=== PATIENT | female | born 1990 | race Caucasian/White ===

== ENCOUNTER 2016-12-12 05:16 | Observation (INO) | payer MEDICAID ==
[2016-12-12 05:38] LABS: BASO % 0.2 % (0-6); EOS % 2.3 % (0-6); HEMATOCRIT 37.3 % (35.0-47.0); HEMOGLOBIN 12.5 gm/dl (11.6-16.0); LYMPH % 16.7 % (16-45); MEAN CELL VOLUME 90.5 fl (81-97); MEAN CORPUSCULAR HEMOGLOBIN 30.3 pg (27-33); MEAN CORPUSCULAR HGB CONC 33.5 g/dl (32-36); MEAN PLATELET VOLUME 11.4 fl (7.4-10.4); MONO % 8.8 % (0-9); PLATELET COUNT 292 K/uL (130-400); RED BLOOD COUNT 4.12 M/uL (3.80-5.40); RED CELL DISTRIBUTION WIDTH 13.2 % (11.5-14.5)
[2016-12-12] MEDS ORDERED: 0.9 % SODIUM CHLORIDE 1,000 ML BAG IV ONE (05:41)
[2016-12-12 05:48] LABS: ALB/GLOB RATIO 1.5 (1.1-1.8); ALBUMIN 4.1 gm/dL (3.5-5.0); ALKALINE PHOSPHATASE 40 U/L (38-126); ALT/SGPT 37 U/L (9-52); ANION GAP 7.4 (7-16); AST/SGOT 19 U/L (14-36); BILIRUBIN,TOTAL 0.42 mg/dL (0.2-1.3); BLOOD UREA NITROGEN 12 mg/dL (7-17); CARBON DIOXIDE 27.6 mmol/L (22-30); CREATININE 0.7 mg/dL (0.52-1.04); EST GLOMERULAR FILTRATION RATE > 60 ml/min; GLUCOSE,RANDOM 114 mg/dL (70-110); TOTAL PROTEIN 6.8 gm/dL (6.3-8.2)
--- NOTE | 2016-12-12 06:04 | Emergency Department Record ---
History of Present Illness - General Chief Complaint: Abdominal Pain Stated Complaint: ABD PAIN Time Seen by Provider: 12/12/16 05:32 Source: Patient, EMS Mode of Arrival: EMS Limitations: No limitations - History of Present Illness Initial Comments: pt brought in for abd pain in the epigastric region for 3 days. pt was seen in [facility] in [place] yesterday. MD Complaint: Abdominal pain Onset/Timin -: Days(s) Location: Epigastric, RUQ Radiation: None Migration to: No migration Severity: Moderate Consistency: Getting worse Improves With: Nothing Worsens With: Nothing Associated Symptoms: Nausea, Vomiting - Related Data LMP (females 10-50): Current Allergies Allergy/AdvReac Type Severity Reaction Status Date / Time Quinolones Allergy "kidneys Verified 12/12/16 05:24 started shutting down" Travel Screening - Travel/Exposure Within Last 30 Days Have you traveled within the last 30 days?: No - Travel/Exposure Within Last Year Have you traveled outside the [place] in the last year?: No - Additonal Travel Details Have you been exposed to anyone with a communicable illness?: No - Travel Symptoms Symptom Screening: None Review of Systems Reviewed: No additional complaints except as noted below Constitutional: Reports: As per HPI. Denies: Chills, Fever, Malaise, Night sweats, Weakness, Weight change Eyes: Reports: As per HPI. Denies: Eye discharge, Eye pain, Photophobia, Vision change ENT: Reports: As per HPI. Denies: Congestion, Dental pain, Ear pain, Epistaxis , Hearing loss, Throat pain Respiratory: Reports: As per HPI. Denies: Cough, Dyspnea, Hemoptysis, Stridor, Wheezes Cardiovascular: Reports: As per HPI. Denies: Arrhythmia, Chest pain, Dyspnea on exertion, Edema, Murmurs, Orthopnea, Palpitations, Paroxysmal nocturnal dyspnea, Rheumatic Fever, Syncope Endocrine: Reports: As per HPI. Denies: Fatigue, Heat or cold intolerance, Polydipsia, Polyuria Gastrointestinal: Reports: As per HPI. Denies: Abdominal pain, Constipation, Diarrhea, Hematemesis, Hematochezia, Melena, Nausea, Vomiting Genitourinary: Reports: As per HPI. Denies: Abnormal menses, Discharge, Dyspareunia, Dysuria, Frequency, Hematuria, Incontinence, Retention, Urgency Musculoskeletal: Reports: As per HPI. Denies: Arthralgia, Back pain, Gout, Joint swelling, Myalgia, Neck pain Skin: Reports: As per HPI. Denies: Bruising, Change in color, Change in hair/ nails, Lesions, Pruritus, Rash Neurological: Reports: As per HPI. Denies: Abnormal gait, Confusion, Headache, Numbness, Paresthesias, Seizure, Tingling, Tremors, Vertigo, Weakness Psychiatric: Reports: As per HPI. Denies: Anxiety, Auditory hallucinations, Depression, Homicidal thoughts, Suicidal thoughts, Visual hallucinations Hematological/Lymphatic: Reports: As per HPI. Denies: Anemia, Blood Clots, Easy bleeding, Easy bruising, Swollen glands Past Medical History - SOCIAL HISTORY Smoking Status: Current every day smoker Alcohol Use: None Drug Use: None - RESPIRATORY Hx Respiratory Disorders: No - CARDIOVASCULAR Hx Cardio Disorders: No - NEURO Hx Neuro Disorders: Yes Hx Seizures: Yes (epilepsy-last seizure "long time ago") - GI Hx GI Disorders: No - Hx Genitourinary Disorders: No - ENDOCRINE Hx Endocrine Disorders: No - MUSCULOSKELETAL Hx Musculoskeletal Disorders: No - PSYCH Hx Psych Problems: No - HEMATOLOGY/ONCOLOGY Hx Hematology/Oncology Disorders: No Family Medical History Any Significant Family History?: No Physical Exam - General General Appearance: Alert, Oriented x3, Cooperative, Mild distress - Head Head exam: Normal inspection - Eye Eye exam: Normal appearance, PERRL, EOMI Pupils: Normal accommodation - ENT ENT exam: Normal exam, Mucous membranes moist, Normal external ear exam, Normal orophraynx Ear exam: Normal external inspection. negative: External canal tenderness Nasal Exam: Normal inspection. negative: Discharge, Sinus tenderness Mouth exam: Normal external inspection, Tongue normal Teeth exam: Normal inspection. negative: Dental caries Throat exam: Normal inspection. negative: Tonsillar erythema, Tonsillar exudate - Neck Neck exam: Normal inspection, Full ROM. negative: Tenderness - Respiratory Respiratory exam: Normal lung sounds bilaterally. negative: Respiratory distress - Cardiovascular Cardiovascular Exam: Regular rate, Normal rhythm, Normal heart sounds - GI/Abdominal GI/Abdominal exam: Soft, Normal bowel sounds, Tenderness - Rectal Rectal exam: Deferred - exam: Deferred - Extremities Extremities exam: Normal inspection, Full ROM, Normal capillary refill. negative: Tenderness - Back Back exam: Reports: Normal inspection, Full ROM. Denies: Muscle spasm, Rash noted, Tenderness - Neurological Neurological exam: Alert, CN II-XII intact, Normal gait, Oriented X3 - Psychiatric Psychiatric exam: Normal affect, Normal mood - Skin Skin exam: Dry, Intact, Normal color, Warm Course Vital Signs 12/12/16 05:16 Temperature 97.7 F Pulse Rate 60 Respiratory 16 Rate Blood Pressure 113/84 Pulse Ox 99 - Reevaluation(s) Reevaluation #1: 12/12/16 06:43 care being assumed by dr kan Medical Decision Making - Lab Data Result diagrams: 12/12/16 05:23 12/12/16 05:23 Lab Results 12/12/16 12/12/16 12/12/16 Range/Units 05:23 05:23 05:51 WBC 6.0 (4.2-12.2) K/uL RBC 4.12 (3.80-5.40) M/uL Hgb 12.5 (11.6-16.0) gm/dl Hct 37.3 (35.0-47.0) % MCV 90.5 (81-97) fl MCH 30.3 (27-33) pg MCHC 33.5 (32-36) g/dl RDW 13.2 (11.5-14.5) % Plt Count 292 (130-400) K/uL MPV 11.4 H (7.4-10.4) fl Gran % 72.0 (47-80) % Lymphocytes % 16.7 (16-45) % Monocytes % 8.8 (0-9) % Eosinophils % 2.3 (0-6) % Basophils % 0.2 (0-6) % Sodium 139 (136-145) mmol/L Potassium 3.7 (3.5-5.1) mmol/L Chloride 104 (98-107) mmol/L Carbon Dioxide 27.6 (22-30) mmol/L Anion Gap 7.4 (7-16) BUN 12 (7-17) mg/dL Creatinine 0.7 (0.52-1.04) mg/dL Estimated GFR > 60 ml/min Random Glucose 114 H (70-110) mg/dL Calcium 8.6 (8.5-10.1) mg/dL Total Bilirubin 0.42 (0.2-1.3) mg/dL AST 19 (14-36) U/L ALT 37 (9-52) U/L Alkaline Phosphatase 40 (38-126) U/L Total Protein 6.8 (6.3-8.2) gm/dL Albumin 4.1 (3.5-5.0) gm/dL Globulin 2.7 (1.4-4.8) gm/dL Albumin/Globulin Ratio 1.5 (1.1-1.8) Lipase 77 (23-300) U/L Disposition Forms: Patient Portal Access Quality - Quality Measures Quality Measures: N/A - Blood Pressure Screening Does Patient Have Any of the Following: No Blood Pressure Classification: Pre-Hypertensive BP Reading Systolic Measurement: 113 Diastolic Measurement: 84 Screening for High Blood Pressure: < Pre-Hypertensive BP, F/U Documented > [ G8950] Pre-Hypertensive Follow-up Interventions: Follow-up with rescreen every year.
[2016-12-12 06:24] LABS: URINE APPEARANCE CLEAR; URINE BILIRUBIN NEGATIVE (NEGATIVE); URINE BLOOD MODERATE (NEGATIVE); URINE COLOR YELLOW; URINE GLUCOSE (UA) NEGATIVE (NEGATIVE); URINE KETONE 15 mg/dL (NEGATIVE); URINE LEUKOCYTE ESTERASE NEGATIVE (NEGATIVE); URINE NITRITE NEGATIVE (NEGATIVE); URINE PROTEIN NEGATIVE (NEGATIVE); URINE UROBILINOGEN 0.2 E.U./dL (0.20 - 1.00)
[2016-12-12 06:29] LABS: AMPHETAMINE SCREEN URINE NOT DETECTED; BARBITURATE SCREEN URINE NOT DETECTED; BENZODIAZEPINE SCREEN URINE NOT DETECTED; COCAINE SCREEN URINE NOT DETECTED; METHADONE SCREEN URINE NOT DETECTED; METHAMPHETAMINE SCREEN DETECTED; OPIATE SCREEN URINE NOT DETECTED; OXYCODONE SCREEN URINE NOT DETECTED; PHENCYCLIDINE SCREEN URINE NOT DETECTED; PROPOXYPHENE SCREEN URINE NOT DETECTED; THC SCREEN URINE NOT DETECTED; TRICYCLIC ANTIDEPRESSANT SCRN NOT DETECTED
[2016-12-12 06:31] LABS: HCG,QUALITATIVE URINE NEGATIVE (NEGATIVE); URINE MUCUS MODERATE; URINE WBC NONE SEEN (0-2/hpf)
[2016-12-12] MEDS ORDERED: KETOROLAC 30 MG/ML VIAL IVP ONE (07:19)
--- NOTE | 2016-12-12 08:28 | Emergency Department Record ---
History of Present Illness - General Chief Complaint: Abdominal Pain Stated Complaint: ABD PAIN Time Seen by Provider: 12/12/16 05:32 Source: Patient, EMS Mode of Arrival: EMS Limitations: No limitations - History of Present Illness MD Complaint: Abdominal pain Onset/Timin -: Days(s) Location: Epigastric, RUQ Radiation: None Migration to: No migration Severity: Moderate Consistency: Getting worse Improves With: Nothing Worsens With: Nothing Associated Symptoms: Nausea, Vomiting - Related Data LMP (females 10-50): Current Patient : No Allergies Allergy/AdvReac Type Severity Reaction Status Date / Time Quinolones Allergy "kidneys Verified 12/12/16 05:24 started shutting down" Travel Screening - Travel/Exposure Within Last 30 Days Have you traveled within the last 30 days?: No - Travel/Exposure Within Last Year Have you traveled outside the [place] in the last year?: No - Additonal Travel Details Have you been exposed to anyone with a communicable illness?: No - Travel Symptoms Symptom Screening: None Review of Systems Constitutional: Reports: As per HPI. Denies: Chills, Fever, Malaise, Night sweats, Weakness, Weight change Eyes: Reports: As per HPI. Denies: Eye discharge, Eye pain, Photophobia, Vision change ENT: Reports: As per HPI. Denies: Congestion, Dental pain, Ear pain, Epistaxis , Hearing loss, Throat pain Respiratory: Reports: As per HPI. Denies: Cough, Dyspnea, Hemoptysis, Stridor, Wheezes Cardiovascular: Reports: As per HPI. Denies: Arrhythmia, Chest pain, Dyspnea on exertion, Edema, Murmurs, Orthopnea, Palpitations, Paroxysmal nocturnal dyspnea, Rheumatic Fever, Syncope Endocrine: Reports: As per HPI. Denies: Fatigue, Heat or cold intolerance, Polydipsia, Polyuria Gastrointestinal: Reports: As per HPI. Denies: Abdominal pain, Constipation, Diarrhea, Hematemesis, Hematochezia, Melena, Nausea, Vomiting Genitourinary: Reports: As per HPI. Denies: Abnormal menses, Discharge, Dyspareunia, Dysuria, Frequency, Hematuria, Incontinence, Retention, Urgency Musculoskeletal: Reports: As per HPI. Denies: Arthralgia, Back pain, Gout, Joint swelling, Myalgia, Neck pain Skin: Reports: As per HPI. Denies: Bruising, Change in color, Change in hair/ nails, Lesions, Pruritus, Rash Neurological: Reports: As per HPI. Denies: Abnormal gait, Confusion, Headache, Numbness, Paresthesias, Seizure, Tingling, Tremors, Vertigo, Weakness Psychiatric: Reports: As per HPI. Denies: Anxiety, Auditory hallucinations, Depression, Homicidal thoughts, Suicidal thoughts, Visual hallucinations Hematological/Lymphatic: Reports: As per HPI. Denies: Anemia, Blood Clots, Easy bleeding, Easy bruising, Swollen glands Past Medical History - SOCIAL HISTORY Smoking Status: Current every day smoker Alcohol Use: None Drug Use: None - RESPIRATORY Hx Respiratory Disorders: No - CARDIOVASCULAR Hx Cardio Disorders: No - NEURO Hx Neuro Disorders: Yes Hx Seizures: Yes (epilepsy-last seizure "long time ago") - GI Hx GI Disorders: No - Hx Genitourinary Disorders: No - ENDOCRINE Hx Endocrine Disorders: No - MUSCULOSKELETAL Hx Musculoskeletal Disorders: No - PSYCH Hx Psych Problems: No - HEMATOLOGY/ONCOLOGY Hx Hematology/Oncology Disorders: No Family Medical History Any Significant Family History?: No Physical Exam - General Limitations: No limitations Course Vital Signs 12/12/16 12/12/16 12/12/16 05:16 06:21 07:19 Temperature 97.7 F Pulse Rate 60 Pulse Rate [ 52 L 60 Caramel Maker ] Respiratory 16 20 20 Rate Blood Pressure 113/84 Blood Pressure 153/101 139/98 [Left Arm] Pulse Ox 99 100 100 - Reevaluation(s) Reevaluation #1: The patient is doing well at this time. She is resting comfortably with no new complaints. I did inform her that her lab tests are all WNL's. We are waiting on her US presently. I also did review her visit at [facility] yesterday and she did have a normal CT and no diagnosis was given regarding the cause of the pain. 12/12/16 08:26 Reevaluation #2: The patient now has become very histrionic and crying uncontrollably at times. She now says the pain in the upper abdomen has returned and is very severe. She is requesting more pain medicines. Presently she is curled up in the position and is reluctant to let me examine her abdomen. When I finally did get her to lay back she did have mild to moderate epigastric tenderness. 12/12/16 08:44 Reevaluation #3: The patient is doing better at this time. I did discuss the issues with the patient and the need for a short stay admission and she does agree to that. I also did discuss the case with Mariella COLUNGA) and she also accepts the patient for Dr. Cheney. 12/12/16 09:40 Medical Decision Making - Data Complexity MDM Data: Labs Ordered and/or Reviewed, X-Ray Ordered and/or Reviewed - Lab Data Result diagrams: 12/12/16 05:23 12/12/16 05:23 Lab Results 12/12/16 12/12/16 12/12/16 Range/Units 05:23 05:23 05:51 WBC 6.0 (4.2-12.2) K/uL RBC 4.12 (3.80-5.40) M/uL Hgb 12.5 (11.6-16.0) gm/dl Hct 37.3 (35.0-47.0) % MCV 90.5 (81-97) fl MCH 30.3 (27-33) pg MCHC 33.5 (32-36) g/dl RDW 13.2 (11.5-14.5) % Plt Count 292 (130-400) K/uL MPV 11.4 H (7.4-10.4) fl Gran % 72.0 (47-80) % Lymphocytes % 16.7 (16-45) % Monocytes % 8.8 (0-9) % Eosinophils % 2.3 (0-6) % Basophils % 0.2 (0-6) % Sodium 139 (136-145) mmol/L Potassium 3.7 (3.5-5.1) mmol/L Chloride 104 (98-107) mmol/L Carbon Dioxide 27.6 (22-30) mmol/L Anion Gap 7.4 (7-16) BUN 12 (7-17) mg/dL Creatinine 0.7 (0.52-1.04) mg/dL Estimated GFR > 60 ml/min Random Glucose 114 H (70-110) mg/dL Lactic Acid (0.7-2.1) mmol/L Calcium 8.6 (8.5-10.1) mg/dL Total Bilirubin 0.42 (0.2-1.3) mg/dL AST 19 (14-36) U/L ALT 37 (9-52) U/L Alkaline Phosphatase 40 (38-126) U/L Total Protein 6.8 (6.3-8.2) gm/dL Albumin 4.1 (3.5-5.0) gm/dL Globulin 2.7 (1.4-4.8) gm/dL Albumin/Globulin Ratio 1.5 (1.1-1.8) Lipase 77 (23-300) U/L Urine Color Urine Appearance Urine pH (5.0-8.0) Ur Specific [place] (1.002-1.030) Urine Protein (NEGATIVE) Urine Glucose (UA) (NEGATIVE) Urine Ketones (NEGATIVE) Urine Blood (NEGATIVE) Urine Nitrite (NEGATIVE) Urine Bilirubin (NEGATIVE) Urine Urobilinogen (0.20 - 1.00) E.U./dL Ur Leukocyte Esterase (NEGATIVE) Urine RBC (NONE SEEN) Urine WBC (0-2/hpf) Ur Epithelial Cells (FEW) Urine Mucus Urine HCG, Qual (NEGATIVE) Urine Opiates Screen Ur Oxycodone Screen Urine Methadone Screen Ur Propoxyphene Screen Ur Barbituates Screen Ur Tricyclics Screen Ur Phencyclidine Scrn Ur Amphetamine Screen U Methamphetamines Scrn U Benzodiazepines Scrn Urine Cocaine Screen Urine Cannabis Screen 12/12/16 12/12/16 12/12/16 Range/Units 06:15 06:15 06:50 WBC (4.2-12.2) K/uL RBC (3.80-5.40) M/uL Hgb (11.6-16.0) gm/dl Hct (35.0-47.0) % MCV (81-97) fl MCH (27-33) pg MCHC (32-36) g/dl RDW (11.5-14.5) % Plt Count (130-400) K/uL MPV (7.4-10.4) fl Gran % (47-80) % Lymphocytes % (16-45) % Monocytes % (0-9) % Eosinophils % (0-6) % Basophils % (0-6) % Sodium (136-145) mmol/L Potassium (3.5-5.1) mmol/L Chloride (98-107) mmol/L Carbon Dioxide (22-30) mmol/L Anion Gap (7-16) BUN (7-17) mg/dL Creatinine (0.52-1.04) mg/dL Estimated GFR ml/min Random Glucose (70-110) mg/dL Lactic Acid 0.9 (0.7-2.1) mmol/L Calcium (8.5-10.1) mg/dL Total Bilirubin (0.2-1.3) mg/dL AST (14-36) U/L ALT (9-52) U/L Alkaline Phosphatase (38-126) U/L Total Protein (6.3-8.2) gm/dL Albumin (3.5-5.0) gm/dL Globulin (1.4-4.8) gm/dL Albumin/Globulin Ratio (1.1-1.8) Lipase (23-300) U/L Urine Color Yellow Urine Appearance Clear Urine pH 6.5 (5.0-8.0) Ur Specific [place] 1.020 (1.002-1.030) Urine Protein Negative (NEGATIVE) Urine Glucose (UA) Negative (NEGATIVE) Urine Ketones 15 mg/dl H (NEGATIVE) Urine Blood Moderate (NEGATIVE) Urine Nitrite Negative (NEGATIVE) Urine Bilirubin Negative (NEGATIVE) Urine Urobilinogen 0.2 (0.20 - 1.00) E.U./dL Ur Leukocyte Esterase Negative (NEGATIVE) Urine RBC Too numerous to cnt (NONE SEEN) Urine WBC None seen (0-2/hpf) Ur Epithelial Cells 3 - 6 (FEW) Urine Mucus Moderate Urine HCG, Qual Negative (NEGATIVE) Urine Opiates Screen Not detected Ur Oxycodone Screen Not detected Urine Methadone Screen Not detected Ur Propoxyphene Screen Not detected Ur Barbituates Screen Not detected Ur Tricyclics Screen Not detected Ur Phencyclidine Scrn Not detected Ur Amphetamine Screen Not detected U Methamphetamines Scrn Detected U Benzodiazepines Scrn Not detected Urine Cocaine Screen Not detected Urine Cannabis Screen Not detected - Radiology Data Radiology results: Report reviewed (Abdominal US: Nonspecific edema of GB wall, O/W neg.) Disposition Disposition: Admit Clinical Impression: Abdominal pain with vomiting Disposition: Still a Patient at [facility] Decision to Admit: Admit from ER Decision to Admit Date: 12/12/16 Decision to Admit Time: 09:41 Accepting Physician: Noni Time Discussed w/Accepting Physician: 09:41 Condition: (2) Stable Instructions: Abdominal Pain (ED) Forms: Patient Portal Access Time of Disposition: 09:41 Quality - Quality Measures Quality Measures: N/A - Blood Pressure Screening View Details: Yes Does Patient Have Any of the Following: No Blood Pressure Classification: Pre-Hypertensive BP Reading Systolic Measurement: 113 Diastolic Measurement: 84 Screening for High Blood Pressure: < Pre-Hypertensive BP, F/U Documented > [ G8950] Pre-Hypertensive Follow-up Interventions: Referral to alternative/primary care provider.
[2016-12-12] MEDS ORDERED: MAGNESIUM HYDROXIDE/AL HYDROX 30 ML, LIDOCAINE VISC 2% 200 MG PO ONE ×2 (08:40)
[2016-12-12] MEDS ORDERED: ONDANSETRON HCL IV 4 MG/2 ML VIAL IVP ONE (08:40)
[2016-12-12] MEDS ORDERED: SUCRALFATE 1 G/10 ML UD PO ONE (09:06)
[2016-12-12] MEDS ORDERED: MORPHINE SULFATE 5 MG/ML PFS IVP ONE (09:16)
[2016-12-12] MEDS ORDERED: ONDANSETRON HCL IV 4 MG/2 ML VIAL IVP PRN (12:56)
[2016-12-12] MEDS ORDERED: PANTOPRAZOLE SODIUM IV 40 MG VIAL IV SCH (12:56)
--- NOTE | 2016-12-12 13:45 | ULTRASOUND REPORT ---
EXAM: EMERGENCY COMPLETE ABDOMEN ULTRASOUND HISTORY: RIGHT UPPER QUADRANT AND EPIGASTRIC PAIN FOR 3-4 DAYS. TECHNIQUE: Complete real-time ultrasound examination of the abdomen was obtained. Comparison: No prior abdomen ultrasound with which to compare. FINDINGS: The majority of the pancreas was visualized with no definite pancreatic mass or peripancreatic fluid collection evident. The abdominal aorta appears negative with no aneurysm seen. The IVC was negative as seen. The liver appears negative with no definite hepatic mass or intrahepatic biliary dilatation seen. The right kidney measures 10.5 cm in length with no hydronephrosis evident. No gallstones identified within the gallbladder and no pericholecystic fluid collection evident. The gallbladder wall diffusely is at about the upper limits of normal in thickness. The common duct was seen and was of normal caliber. The left kidney measures 10.4 cm in length with no hydronephrosis evident. The spleen appears negative with no splenic mass evident. IMPRESSION: 1. NO GALLSTONES OR BILIARY DILATATION SEEN. THE GALLBLADDER WALL THICKNESS DIFFUSELY IS SLIGHTLY PROMINENT. 2. THE REMAINDER OF THE ABDOMEN ULTRASOUND APPEARS ESSENTIALLY NEGATIVE. THE LIVER APPEARED UNREMARKABLE. NO HYDRONEPHROSIS ON EITHER SIDE. JOB NUMBER: [id number] MTDD
--- NOTE | 2016-12-12 15:33 | History & Physical ---
History of Present Illness - Date of Service Date of Service for History & Physical: 12/12/16 - History of Present Illness Admitting Diagnosis: 1. Intractable Nausea, Vomiting, with Abdominal Pain. History of Present Illness: Ms. Winter is a 26 y/o female who reports a three day history of sharp abdominal pain, nausea and vomiting. She says her symptoms began suddenly and cannot recall any precipitating events. The patient notes increasing abdominal pain, initially 4/10 in severity now approximately a 7/10. She states that eating exacerbates her pain and she has no alleviating factors. Her symptoms of nausea/vomiting have been persistent over the past few days of which she describes a bitter/sour tasting vomitous but denies blood. The patient reports similar symptoms in the past with upper EGD several years ago but is unable to recall the results or findings of the procedure and has not been on medications. Of note is the patient's daily use of cannabis. As per the ED the patient was evaluated at [facility] and CT abdomen /pelvis were unremarkable. In addition, the patient was hesitant to be examined and requested more pain medication. Labs and abdominal US on admission did not reveal any acute abdominal issues. On initial evaluation the patient appears in mild distress, but is stable and able to participate meaningfully in examination and history. Travel Screening - Travel/Exposure Within Last 30 Days Have you traveled within the last 30 days?: No - Travel/Exposure Within Last Year Have you traveled outside the [place] in the last year?: No - Additonal Travel Details Have you been exposed to anyone with a communicable illness?: No - Travel Symptoms Symptom Screening: None Review of Systems Constitutional: Denies: Chills, Fever, Weakness, Weight change Eyes: Denies: Vision change ENT: Denies: Hearing loss, Throat pain Respiratory: Denies: Cough, Dyspnea Cardiovascular: Reports: Arrhythmia. Denies: Chest pain, Dyspnea on exertion, Murmurs, Palpitations Endocrine: Denies: Fatigue, Heat or cold intolerance Gastrointestinal: Reports: Abdominal pain, Nausea, Vomiting (5-6 episodes since Saturday ). Denies: Constipation, Diarrhea, Hematemesis, Hematochezia, Melena Genitourinary: Reports: Abnormal menses. Denies: Discharge, Dyspareunia, Dysuria Musculoskeletal: Denies: Arthralgia, Back pain Skin: Reports: Lesions, Pruritus (facial rash ), Rash Neurological: Reports: Abnormal gait, Paresthesias, Seizure, Tingling, Tremors, Vertigo. Denies: Confusion, Headache, Numbness, Weakness Psychiatric: Reports: Auditory hallucinations, Depression. 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: 2 LMP comments: Reports: current - RESPIRATORY Hx Respiratory Disorders: No - CARDIOVASCULAR Hx Cardio Disorders: No - NEURO Hx Neuro Disorders: Yes Hx Seizures: Yes (epilepsy-last seizure "long time ago") - GI Hx GI Disorders: No - Hx Genitourinary Disorders: No - ENDOCRINE Hx Endocrine Disorders: No - MUSCULOSKELETAL Hx Musculoskeletal Disorders: No - PSYCH Hx Psych Problems: No - HEMATOLOGY/ONCOLOGY Hx Hematology/Oncology Disorders: No Family Medical History Any Significant Family History?: Yes Hx Cancer: Father, Mother Hx Diabetes: Brother/Sister Hx HTN: Mother H&P Meds/Allergies - Allergies Allergies: Allergies Allergy/AdvReac Type Severity Reaction Status Date / Time Quinolones Allergy "kidneys Verified 12/12/16 05:24 started shutting down" - Home Medications Home Medications Medication Instructions Recorded Confirmed Last Taken Dextroamphetamine/Amphetamine 10 mg PO DAILY 12/12/16 12/12/16 Unknown [Adderall] Levetiracetam [Keppra] 500 mg PO BID 12/12/16 12/12/16 Unknown - Active Medications Active Medications: Current Medications Sodium Chloride () 1,000 mls @ 100 mls/hr IV .Q10H PRN PRN Reason: LARGE VOLUME IV Morphine Sulfate (Morphine Sulfate) 2.5 mg IVP Q4HR PRN PRN Reason: Analgesia Stop: 12/19/16 12:57 Ondansetron HCl (Zofran) 4 mg IVP Q4H PRN PRN Reason: NAUSEA Pantoprazole Sodium (Protonix Iv) 40 mg IVP Q24H [facility]ECKY Physical Exam - General General Appearance: Alert, Oriented x3, Cooperative, Mild distress Limitations: No limitations - Head Head exam: Normal inspection - Eye Eye exam: Normal appearance, PERRL, EOMI Pupils: Normal accommodation - ENT ENT exam: Normal exam, Mucous membranes moist, Normal external ear exam, Normal orophraynx Ear exam: Normal external inspection. negative: External canal tenderness Nasal Exam: Normal inspection. negative: Discharge, Sinus tenderness Mouth exam: Normal external inspection, Tongue normal Teeth exam: negative: Dental caries Throat exam: Normal inspection. negative: Tonsillar erythema, Tonsillar exudate - Neck Neck exam: Normal inspection, Full ROM. negative: Tenderness - Respiratory Respiratory exam: Normal lung sounds bilaterally. negative: Respiratory distress - Cardiovascular Cardiovascular Exam: Regular rate, Normal rhythm, Normal heart sounds Peripheral Pulses: 2+: Radial (R), Radial (L), Dorsalis Pedis (R), Dorsalis Pedis (L) - GI/Abdominal GI/Abdominal exam: Soft, Normal bowel sounds, Tenderness (epigastrium, ) - Rectal Rectal exam: Deferred - exam: Deferred - Extremities Extremities exam: Normal inspection, Full ROM, Normal capillary refill. negative: Tenderness - Back Back exam: Reports: Muscle spasm, Rash noted, Tenderness - Neurological Neurological exam: Alert, CN II-XII intact, Normal gait, Oriented X3 - Psychiatric Psychiatric exam: Normal affect, Normal mood. negative: Agitated, Anxious - Skin Skin exam: Dry, Intact, Normal color, Rash (facial rash ), Warm Distribution of rash: Face Description of rash: Erythematous Results - Labs Result Diagrams: 12/12/16 05:23 12/12/16 05:23 VTE H&P Assessment - Risk for VTE Risk for VTE: No Risk Level: Very Low Risk Assessment Date: 12/12/16 Risk Assessment Time: 17:04 VTE Orders Placed or Will Be Placed: No VTE Reason for No Prophylaxis: Not Indicated AMI H&P Plan - AMI AMI Reason For No ASA Ordered: Not Indicated AMI Reason For No Statins Ordered: Not Indicated - EKG Initial Date: 12/12/16 Time: 17:05 EKG: No Acute Changes Plan - Detailed Diagnosis and Plan (1) Acute abdominal pain Plan: - likely due to viral or cannabis gastritis. - as per ED recent CT abdomen/pelvis negative at [facility]. Abdmonal US in ED unremarkable - cont pt on Nacl 0.9% @ 100mL/hr, Morphine IV 2.5mg, change to Q6H, Zofran 4mg - liquid diet today as tolerated, NPO at midnight. GI consulted for EGD in am. - repeat electrolytes, cbc/ w diff in the am. Current Visit: Yes Status: Acute Base Code: R10.9 - UNSPECIFIED ABDOMINAL PAIN Onset Date: ~12/09/16 (2) Emesis, persistent Plan: - likely gastritis induced by daily cannabis use. - cont w/ liquid diet as tolerated and NPO @ midnight with plans for EGD in the am as per GI. Protonix 40mg IVP QD - pt counseled to discontinue marajuana use. Current Visit: Yes Status: Acute Base Code: R11.10 - VOMITING, UNSPECIFIED (3) Tobacco abuse Plan: - pt reports smoking 1/2 pk daily for >5 years. - cessation counseling advised. Current Visit: Yes Status: Chronic Base Code: Z72.0 - TOBACCO USE (4) Tobacco abuse counseling Current Visit: Yes Status: Chronic Base Code: Z71.6 - TOBACCO ABUSE COUNSELING (5) Full code status Current Visit: Yes Status: Acute Base Code: Z78.9 - OTHER SPECIFIED HEALTH STATUS Comment: Disposition: anticipate d/c post EGD with outpatient PCP f/u within one week.
[2016-12-12] MEDS: PANTOPRAZOLE SODIUM IV 40 MG VIAL IVP SCH (17:18)
[2016-12-12] MEDS: MORPHINE SULFATE 5 MG/ML PFS IVP PRN (19:57)
[2016-12-13] MEDS: 0.9 % SODIUM CHLORIDE 1000ML 1,000 ML IV PRN ×2 (00:55→09:56)
[2016-12-13] MEDS: MORPHINE SULFATE 5 MG/ML PFS IVP PRN ×3 (02:04→11:01)
[2016-12-13 07:11] LABS: BASO % 0.6 % (0-6); EOS % 5.1 % (0-6); HEMATOCRIT 37.3 % (35.0-47.0); HEMOGLOBIN 12.4 gm/dl (11.6-16.0); LYMPH % 44.2 % (16-45); MEAN CORPUSCULAR HEMOGLOBIN 30.2 pg (27-33); MEAN CORPUSCULAR HGB CONC 33.2 g/dl (32-36); MEAN PLATELET VOLUME 11.6 fl (7.4-10.4); MONO % 12.1 % (0-9); PLATELET COUNT 273 K/uL (130-400); RED CELL DISTRIBUTION WIDTH 13.2 % (11.5-14.5); WHITE BLOOD COUNT W/O DIFF 5.1 K/uL (4.2-12.2)
[2016-12-13 07:28] LABS: ALB/GLOB RATIO 1.7 (1.1-1.8); ALBUMIN 3.8 gm/dL (3.5-5.0); ALKALINE PHOSPHATASE 40 U/L (38-126); ALT/SGPT 34 U/L (9-52); AMYLASE 60 U/L (30-110); ANION GAP 5.8 (7-16); AST/SGOT 16 U/L (14-36); BILIRUBIN,TOTAL 0.43 mg/dL (0.2-1.3); BLOOD UREA NITROGEN 6 mg/dL (7-17); CARBON DIOXIDE 27.2 mmol/L (22-30); CREATININE 0.8 mg/dL (0.52-1.04); EST GLOMERULAR FILTRATION RATE > 60 ml/min; GLUCOSE,RANDOM 93 mg/dL (70-110); LIPASE 37 U/L (23-300); TOTAL PROTEIN 6.1 gm/dL (6.3-8.2)
--- NOTE | 2016-12-13 10:26 | Physician Progress Note ---
Subjective - Date Date of Physician Progress Note: 12/13/16 - Subjective Subjective Comment: Patient complains of abdominal pain and migraine headache last night. Location: Abdomen, Head Radiation: Non-Radiating Severity scale (1-10): 5 Quality: Aching Consistency: Constant Improves with: Medication Worsens with: None Associated symptoms: Denies other symptoms Objective - Vital Signs Vital Signs: Vital Signs - Last 24 Hrs Temp Pulse Resp BP Pulse Ox 12/13/16 06:00 98.0 F 75 14 120/66 99 12/13/16 02:00 98.1 F 73 14 124/76 97 12/12/16 22:56 97.7 F 60 16 118/72 100 12/12/16 21:00 16 12/12/16 19:12 12 - General General Appearance: Alert, Oriented x3, Cooperative, Mild distress Limitations: No limitations - Head Head exam: Normal inspection - Eye Eye exam: Normal appearance, PERRL - ENT ENT exam: Mucous membranes moist Throat exam: Tonsillar exudate - Neck Neck exam: Normal inspection. negative: Tenderness - Respiratory Respiratory exam: Normal lung sounds bilaterally. negative: Respiratory distress - Cardiovascular Cardiovascular Exam: Regular rate, Normal rhythm, Normal heart sounds Peripheral Pulses: 2+: Radial (R), Radial (L), Dorsalis Pedis (R), Dorsalis Pedis (L) - GI/Abdominal GI/Abdominal exam: Soft, Normal bowel sounds, Tenderness (epigastrium) - Rectal Rectal exam: Deferred - exam: Deferred - Extremities Extremities exam: Normal inspection. negative: Tenderness - Neurological Neurological exam: Alert, Normal gait, Oriented X3 - Psychiatric Psychiatric exam: Normal affect, Normal mood. negative: Agitated, Anxious - Skin Skin exam: Dry, Intact, Normal color, Rash (facial rash ), Warm Distribution of rash: Face Description of rash: Erythematous Assessment and Plan - Assessment and Plan (1) Acute abdominal pain Plan: - likely due to viral or cannabis induced gastritis. - continue on Nacl 0.9% @ 100ml/hr, morphine 2.5mg PRN, Zofran 4mg PRN - NPO pending EGD this am. Discussed with GI and will f/u once procedure completed. Current Visit: Yes Status: Acute Base Code: R10.9 - UNSPECIFIED ABDOMINAL PAIN Onset Date: ~12/09/16 (2) Migraine Plan: - patient takes Excedrin migraine at home. No PO medications pending EGD this am. - IV morphine administered last night with moderate effect. - will order IV Toradol if recurring symptoms. Current Visit: Yes Status: Acute Qualifiers: Migraine type: without aura Intractability: not intractable Base Code: G43.909 - MIGRAINE, UNSP, NOT INTRACTABLE, WITHOUT STATUS MIGRAINOSUS (3) Emesis, persistent Plan: - pt NPO since last night for procedure. - no emesis over the past 24 hours. - Zofran 4 mg PRN to continue. Current Visit: Yes Status: Acute Base Code: R11.10 - VOMITING, UNSPECIFIED Comment: Resolved (4) Tobacco abuse Current Visit: Yes Status: Chronic Base Code: Z72.0 - TOBACCO USE (5) Full code status Current Visit: Yes Status: Acute Base Code: Z78.9 - OTHER SPECIFIED HEALTH STATUS Comment: Disposition: anticipate d/c post EGD if pt able to tolerate diet this afternoon. Results - Labs Result Diagrams: 12/13/16 06:40 12/13/16 06:40 Labs Last 24 Hours: Laboratory Results - last 24 hr 12/13/16 12/13/16 06:40 06:40 WBC 5.1 RBC 4.10 Hgb 12.4 Hct 37.3 MCV 91.0 MCH 30.2 MCHC 33.2 RDW 13.2 Plt Count 273 MPV 11.6 H Gran % 38.0 L Lymphocytes % 44.2 Monocytes % 12.1 H Eosinophils % 5.1 Basophils % 0.6 Sodium 140 Potassium 3.9 Chloride 107 Carbon Dioxide 27.2 Anion Gap 5.8 L BUN 6 L Creatinine 0.8 Estimated GFR > 60 Random Glucose 93 Calcium 8.7 Total Bilirubin 0.43 AST 16 ALT 34 Alkaline Phosphatase 40 Total Protein 6.1 L Albumin 3.8 Globulin 2.3 Albumin/Globulin Ratio 1.7 Amylase 60 Lipase 37 DVT/PE Assessment - Risk for VTE Risk for VTE: No Risk Level: Very Low Risk Assessment Date: 12/12/16 Risk Assessment Time: 17:04 VTE Orders Placed or Will Be Placed: No VTE Reason for No Prophylaxis: Not Indicated - Active Medicaitons Current Medications: Current Medications Sodium Chloride () 1,000 mls @ 100 mls/hr IV .Q10H PRN PRN Reason: LARGE VOLUME IV Last Admin: 12/13/16 09:56 Dose: 100 mls/hr Morphine Sulfate (Morphine Sulfate) 2.5 mg IVP Q4HR PRN PRN Reason: Analgesia Stop: 12/19/16 12:57 Last Admin: 12/13/16 07:16 Dose: 2.5 mg Ondansetron HCl (Zofran) 4 mg IVP Q4H PRN PRN Reason: NAUSEA Pantoprazole Sodium (Protonix Iv) 40 mg IVP Q24H [facility] Last Admin: 12/12/16 17:18 Dose: 40 mg AMI Plan - Labs Result Diagrams: 12/13/16 06:40 12/13/16 06:40
[2016-12-13] MEDS: PANTOPRAZOLE SODIUM IV 40 MG VIAL IVP SCH (12:37)
[2016-12-13] MEDS ORDERED: ACETAMINOPHEN 500 MG TABLET PO PRN (13:24)
[2016-12-13] MEDS ORDERED: LIDOCAINE 2% MDV (20MG/ML) 20ML VIAL IV ONE (14:00)
--- NOTE | 2016-12-13 15:03 | Discharge Summary ---
Providers Discharge Summary Date: 12/13/16 Date of admission: 12/12/16 11:23 Attending physician: JEANINE COPELAND Primary care physician: JEANINE COPELAND Consults: Gastroenterology - Dr. Olea Physical Exam - Vital Signs Vital Signs: Vital Signs - Last 24 Hrs Temp Pulse Resp BP BP Pulse Ox 12/13/16 11:25 98 F 120/66 12/13/16 10:00 98.2 F 80 14 117/79 98 12/13/16 06:00 98.0 F 75 14 120/66 99 12/13/16 02:00 98.1 F 73 14 124/76 97 12/12/16 22:56 97.7 F 60 16 118/72 100 12/12/16 21:00 16 12/12/16 19:12 12 - General General Appearance: Alert, Oriented x3, Cooperative, No acute distress Limitations: No limitations - Head Head exam: Atraumatic, Normal inspection - Eye Eye exam: Normal appearance - Respiratory Respiratory exam: Normal lung sounds bilaterally - Cardiovascular Cardiovascular Exam: Regular rate, Normal rhythm, Normal heart sounds Peripheral Pulses: 2+: Radial (R), Radial (L), Dorsalis Pedis (R), Dorsalis Pedis (L) - GI/Abdominal GI/Abdominal exam: Soft, Normal bowel sounds. negative: Tenderness - Extremities Extremities exam: negative: Tenderness - Back Back exam: Reports: Rash noted - Neurological Neurological exam: Alert, Normal gait, Oriented X3 - Psychiatric Psychiatric exam: Normal affect, Normal mood - Skin Skin exam: Dry, Intact, Rash (facial rash ), Warm Distribution of rash: Face Description of rash: Erythematous Hospitalization - Hospitalization Admission Diagnosis: 1. Intractable Nausea, Vomiting, with Abdominal Pain. - Problem List/Discharge Diagnosis (1) Gastric ulcer Plan: The patient's initial presentation was abdominal pain, nausea and vomiting. This was considered to probably cyclical vomiting and gastritis due to chronic cannabis use. Abdominal US in ED as well as CT abdomen/pelvis from [facility] are negative. EGD 12/13/16: shows small gastric ulceration. The patient is to be continued on PPI BID x 6 weeks with follow up evaluation as per GI for colonoscopy for complaint of hematochezia. Current Visit: Yes Status: Acute Discharge Diagnosis: Gastric ulcer chronicity: unspecified ulcer chronicity Gastric ulcer complication status: without hemorrhage or perforation Qualified Code(s): K25.9 - Gastric ulcer, unspecified as acute or chronic, without hemorrhage or perforation Base Code: K25.9 - GASTRIC ULCER, UNSP ACUTE OR CHRONIC, W/O HEMOR OR PERF Diagnosis Priority: Primary Onset Date: ~12/12/16 (2) Migraine Plan: Patient is asked to continue Acetaminophen 500mg Q6H PRN at the onset of symptoms. She is to follow up with her PCP in [place] at the earliest opportunity. Current Visit: Yes Status: Acute Discharge Diagnosis: Migraine type: without aura Intractability: not intractable Base Code: G43.909 - MIGRAINE, UNSP, NOT INTRACTABLE, WITHOUT STATUS MIGRAINOSUS Comment: Resolved (3) Tobacco abuse Plan: Cessation counseling provided for > 5 minutes. Current Visit: Yes Status: Chronic Base Code: Z72.0 - TOBACCO USE - Hospitalization Course Disposition: Home, Self-Care Hospital Course: Summary: 26 y/o female who presents with complaint of 3 day history of nausea, vomiting and sharp abdominal pain. On admission her symptoms were vague and non- specific but she subsequently reported similar episodes in the past, frequent marajuana and amphetamine use. She has had upper EGD in the past, the results of which are unknown but the patient has not been on any home medications to address her symptoms. 12/12/16 The patient was started on morphine 2.5mg IV PRN, Zofran 4mg Q4H and IV fluids. She was held NPO with anticipation for EGD on 12/13. In addition to her admitting complaints the patient began to experience a migraine headache throughout the evening and was given IV morphine with moderate relief of symptoms. 12/13/16 Upper GI Endoscopy performed this morning revealed a small non-bleeding gastric ulcer. The patient's symptoms improved post-operatively and she was able to tolerate liquid/soft diet this afternoon. Procedures: Upper GI Endoscopy Abnormal Labs: Abnormal Lab Results 12/13/16 12/13/16 Range/Units 06:40 06:40 MPV 11.6 H (7.4-10.4) fl Gran % 38.0 L (47-80) % Monocytes % 12.1 H (0-9) % Anion Gap 5.8 L (7-16) BUN 6 L (7-17) mg/dL Total Protein 6.1 L (6.3-8.2) gm/dL Condition at Discharge: (1) Good Discharge Diagnosis: Gastric ulcer Discharge Medications - Discharge Medications Home Medications: Ambulatory Orders Dextroamphetamine/Amphetamine [Adderall] 10 mg PO DAILY 12/12/16 [Last Taken Unknown] Levetiracetam [Keppra] 500 mg PO BID 12/12/16 [Last Taken Unknown] Discharge Plan - Discharge Instructions Instructions: Abdominal Pain (ED)
--- NOTE | 2016-12-13 15:40 | Discharge Summary ---
Providers Date of admission: 12/12/16 11:23 Attending physician: JEANINE COPELAND Primary care physician: JEANINE COPELAND Physical Exam - Vital Signs Vital Signs: Vital Signs - Last 24 Hrs Temp Pulse Resp BP BP Pulse Ox 12/13/16 11:25 98 F 120/66 12/13/16 10:00 98.2 F 80 14 117/79 98 12/13/16 06:00 98.0 F 75 14 120/66 99 12/13/16 02:00 98.1 F 73 14 124/76 97 12/12/16 22:56 97.7 F 60 16 118/72 100 12/12/16 21:00 16 12/12/16 19:12 12 - General General Appearance: Alert, Oriented x3, Cooperative, No acute distress Limitations: No limitations - Head Head exam: Atraumatic, Normal inspection - Eye Eye exam: Normal appearance Pupils: Normal accommodation - ENT ENT exam: Mucous membranes moist Ear exam: Normal external inspection. negative: External canal tenderness Nasal Exam: Normal inspection. negative: Discharge, Sinus tenderness Mouth exam: Normal external inspection, Tongue normal Teeth exam: negative: Dental caries Throat exam: Tonsillar exudate - Neck Neck exam: Normal inspection. negative: Tenderness - Respiratory Respiratory exam: Normal lung sounds bilaterally - Cardiovascular Cardiovascular Exam: Regular rate, Normal rhythm, Normal heart sounds Peripheral Pulses: 2+: Radial (R), Radial (L), Dorsalis Pedis (R), Dorsalis Pedis (L) - GI/Abdominal GI/Abdominal exam: Soft, Normal bowel sounds. negative: Tenderness - Rectal Rectal exam: Deferred - exam: Deferred - Extremities Extremities exam: negative: Tenderness - Back Back exam: Reports: Rash noted - Neurological Neurological exam: Alert, Normal gait, Oriented X3 - Psychiatric Psychiatric exam: Normal affect, Normal mood - Skin Skin exam: Dry, Intact, Rash (facial rash ), Warm Distribution of rash: Face Description of rash: Erythematous Hospitalization - Hospitalization Admission Diagnosis: 1. Intractable Nausea, Vomiting, with Abdominal Pain. - Problem List/Discharge Diagnosis (1) Gastric ulcer Current Visit: Yes Status: Acute Discharge Diagnosis: Gastric ulcer chronicity: unspecified ulcer chronicity Gastric ulcer complication status: without hemorrhage or perforation Qualified Code(s): K25.9 - Gastric ulcer, unspecified as acute or chronic, without hemorrhage or perforation Base Code: K25.9 - GASTRIC ULCER, UNSP ACUTE OR CHRONIC, W/O HEMOR OR PERF Onset Date: ~12/12/16 (2) Migraine Current Visit: Yes Status: Acute Discharge Diagnosis: Migraine type: without aura Intractability: not intractable Base Code: G43.909 - MIGRAINE, UNSP, NOT INTRACTABLE, WITHOUT STATUS MIGRAINOSUS Comment: Resolved (3) Tobacco abuse Current Visit: Yes Status: Chronic Base Code: Z72.0 - TOBACCO USE - Hospitalization Course Disposition: Home, Self-Care Abnormal Labs: Abnormal Lab Results 12/13/16 12/13/16 Range/Units 06:40 06:40 MPV 11.6 H (7.4-10.4) fl Gran % 38.0 L (47-80) % Monocytes % 12.1 H (0-9) % Anion Gap 5.8 L (7-16) BUN 6 L (7-17) mg/dL Total Protein 6.1 L (6.3-8.2) gm/dL Condition at Discharge: (1) Good Discharge Medications - Discharge Medications Prescriptions: Acetaminophen [Tylenol Extra Strength] 500 mg PO Q6HR PRN #20 tablet PRN Reason: Abdominal Pain Pantoprazole Sodium [Protonix] 40 mg PO BID #90 tab. Home Medications: Ambulatory Orders Acetaminophen [Tylenol Extra Strength] 500 mg PO Q6HR PRN #20 tablet 12/13/16 [ Last Taken Unknown] Pantoprazole Sodium [Protonix] 40 mg PO BID #90 tab 12/13/16 [Last Taken Unknown] Discharge Plan - Discharge Instructions Activity at Discharge: Resume Usual Activities As Tolerated Diet at Discharge: Regular Diet Instructions: Abdominal Pain (ED)
[2016-12-13] MEDS ORDERED: FENTANYL PF 100MCG/2ML VIAL IV ONE (16:37)
[2016-12-13] MEDS ORDERED: PROPOFOL 10 MG/ML VIAL IV ONE (16:37)
--- NOTE | 2016-12-14 10:00 | Medical Records Consult ---
REASON FOR CONSULTATION: Abdominal pain, nausea, vomiting. HISTORY OF PRESENT ILLNESS: The patient is a 26-year-old woman who has had recurrent bouts of abdominal pain for several years according to her. She has been seen at [facility] as well as most recently at [facility]. She has been complaining of recurrent bouts of nausea and vomiting over the past 5 days. She also admits to questionable coffee-ground emesis, bloody emesis, black stool as well as bloody stool, constipation, and diarrhea. She states that she has had previous upper endoscopy several years ago at [facility], the results of which she says were unremarkable. Her history is somewhat questionable based on her recollection, however. In any event, she denies any obvious exacerbating or remitting factors. She does have a history of seizures and uses Keppra. She had a recent abdominal ultrasound at [facility] which demonstrated possible mildly thickened gallbladder wall but the exam was otherwise unremarkable. She self-reports a recent CT scan at [facility] was unremarkable. PAST MEDICAL HISTORY: Seizure disorder. SOCIAL HISTORY: She does smoke cigarettes and uses marijuana frequently. Denies illicit drugs or alcohol. REVIEW OF SYSTEMS: Otherwise unremarkable. PAST SURGICAL HISTORY: Noncontributory. FAMILY HISTORY: Noncontributory. HOME MEDICATIONS: 1. Keppra. 2. Adderall. ALLERGIES: QUINOLONES. REVIEW OF SYSTEMS: Noted per the admission H&P as well as the History of Present Illness. PHYSICAL EXAMINATION: VITALS: 118/77, pulse 57, respirations 18. She is afebrile. GENERAL: Awake, alert, oriented x3. Nontoxic in appearance. She appears to be in mild distress. Her affect is somewhat flat. HEENT: Head is normocephalic and atraumatic. No temporal muscle wasting is noted. Extraocular muscles are intact. No scleral icterus or conjunctival injection noted. SKIN: Warm and dry. No jaundice noted. NECK: Trachea is midline. Thyroid nonpalpable. The neck was supple. HEART: Regular rate and rhythm although mildly bradycardic. LUNGS: Clear to auscultation without wheezes, rales, or rhonchi. Normal to percussion. ABDOMEN: Soft. There is moderate diffuse tenderness on palpation. There is voluntary guarding without rebound or rigidity noted. EXTREMITIES: No clubbing, cyanosis, or edema. RADIOGRAPHIC DATA: Abdominal ultrasound as previously mentioned. LABORATORY DATA: On admission, white count 6.0, hemoglobin 12.5, hematocrit 37.3, platelets 292. Sodium 139, potassium 3.7, chloride 104, CO2 27.6, BUN 12, creatinine 0.7, glucose 114. Liver chemistries are entirely normal. Lipase was 77. IMPRESSION: 1. Recurrent abdominal pain of unclear etiology. Given the patient's history, it appears she may have been taking NSAIDs and aspirin for headaches. I will need to rule out the possibility of peptic ulcer disease. 2. History of seizures. 3. History of headaches, questionable migraines. RECOMMENDATIONS: I would suggest the patient undergo an upper endoscopy. If that is unremarkable, perhaps a CT enterography would be helpful at some point. Perhaps even an outpatient colonoscopy would be necessary. As always, thank you for allowing me to participate in the healthcare of your patient. CC: Dr. Maxx RIVAS
--- NOTE | 2016-12-18 17:31 | Operative Note ---
DATE OF SURGERY: 12/13/2016 OPERATION: ESOPHAGOGASTRODUODENOSCOPY with biopsy. PREOPERATIVE DIAGNOSIS: Nausea, vomiting, abdominal pain. POSTOPERATIVE DIAGNOSES: 1. Gastric ulcer without stigmata of recent hemorrhage. 2. Rule out occult celiac disease. 3. 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 PROCEDURE: After informed consent was obtained from the patient, she was placed in the left lateral decubitus position in the endoscopy suite, sedated and monitored by the department of anesthesia. Once in the left lateral decubitus position and sedated, a well-lubricated [id number] gastroscope was placed in the posterior oropharynx and under direct visualization passed to the proximal esophagus. The endoscope was advanced through the proximal, mid, and distal esophagus. 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 No ulcers, erosions, strictures, or varices were otherwise seen. The gastric body demonstrated normal distensibility, normal rugal folds. The body and the antrum were carefully inspected revealing mild erythema in the antrum and several erosions as wel Lasix an ulceration. The ulceration in the prepyloric area was without stigmata of recent hemorrhage and had a clean base. This had a somewhat serpiginous appearance. The duodenal bulb and sweep were unremarkable other than perhaps some mild scalloping in the duodenal sweep. Random biopsies obtained to rule out occult celiac sprue. Gastric biopsies obtained to rule out H pylori. J-turn views of the proximal stomach were unremarkable. The endoscope was then straightened and retracted to the GE junction where biopsies were obtained as well. The endoscope removed from the patient with no new findings noted. RECOMMENDATIONS: I would suggest the patient use a [id number] PPI for at least 8 weeks. She should avoid aspirin and nonsteroidal products. In 6-8 weeks, we will schedule her for an upper and lower endoscopy to be performed at that time. In addition, we will attempt to obtain the results of her recent CT scan. As always, thank you for allowing me to participate in the healthcare of your patients. CC: Dr. Maxx RIVAS
== END 2016-12-13 16:38 | disposition home or self-care (01) ==
LOC: ER 05:16 → MEDSURG 11:23
PROVIDERS: ADMIT Family Medicine; ATTEND Family Medicine
DX: K25.9 Gastric ulcer, unspecified as acute or chronic, without hemorrhage or perforation (principal); K29.50 Unspecified chronic gastritis without bleeding; K20.0 Eosinophilic esophagitis; G40.909 Epilepsy, unspecified, not intractable, without status epilepticus; R10.9 Unspecified abdominal pain; G43.909 Migraine, unspecified, not intractable, without status migrainosus; K31.89 Other diseases of stomach and duodenum
CPT/HCPCS: 43239; 00740; 99285 ×2; 96374; 96375; 96361; 83605; 82150; 83690 ×2; 85025 ×2; 80053 ×2; 81001; 81025; 80305; 76700; G0378 ×2; J1885; J2405; J3010; J2270 ×2; 99217; 99220; C9113; J7030